=== PATIENT | male | born 1990 | race Two or more races ===

== ENCOUNTER 2016-06-15 13:06 | Emergency (ER) | payer SELFPAY ==
[~2016-06-15] VITALS: Ht 182.9 cm; Wt 81.6 kg
[2016-06-15 13:20] VITALS: BP 140/58
[2016-06-15] MEDS ORDERED: DIPHTH,PERTUSS(ACELL),TET TOX 0.5 ML DISP.SYRIN. VAX IM ONE (14:15)
--- NOTE | 2016-06-15 14:48 | PHYS DOC ---
Past Medical History Past Medical History: No Pertinent History Past Surgical History: No Surgical History Smoking: Less than 1pk/day Alcohol Use: Occasionally Drug Use: None Adult General Chief Complaint Chief Complaint: LACERATION/AVULSION HPI HPI Patient is a 25 year old male who presents with laceration to the right buttock 5 days ago. He was in the shower when he slipped and fell. He hit his right buttock on the edge of the soap dish that was previously broken. He denies hitting his head or loss of consciousness. He denies any other injuries. He is unsure of when he last received a tetanus booster. He does not have a PCP. The patient's family member translates in [place] [employer]. Review of Systems Review of Systems Constitutional: Denies fever or chills. [] Eyes: Denies change in visual acuity, redness, or eye pain. [] Musculoskeletal: Denies back pain or joint pain. [] Integument: Denies rash or skin lesions. Reports right buttock laceration. Neurologic: Denies headache, focal weakness or sensory changes. Denies loss of consciousness. Current Medications Current Medications Current Medications Medications (Trade) Dose Ordered Sig/Ivory Start Time Stop Time Status Last Admin Dose Admin Diphtheria/ Tetanus/Acell Pertussis (Boostrix) 0.5 ml ONCE ONCE 06/15/16 14:15 06/15/16 14:19 DC Allergies Allergies Allergies Coded Allergies Type Severity Reaction Last Updated Verified No Known Drug Allergies 06/15/16 No Physical Exam Physical Exam Constitutional: Well developed, well nourished, no acute distress, non-toxic appearance. [] HENT: Normocephalic, atraumatic, oropharynx moist. [] Eyes: PERRLA, EOMI, conjunctiva normal, no discharge. [] Neck: Normal range of motion, no tenderness, supple, no stridor. [] Skin: Warm, dry, no erythema, no rash. There is a 4cm laceration across the right buttock. There is no surrounding erythema or induration. There is no drainage from the wound. Back: No midline tenderness, no CVA tenderness. [] Extremities: No tenderness, ROM intact, no edema. Distal pulses equal bilaterally. [] Neurologic: Alert and oriented X 3, normal motor function, normal sensory function, no focal deficits noted. [] Psychologic: Affect normal, judgement normal, mood normal. [] Current Patient Data Vital Signs Vital Signs Date Time Temp Pulse Resp B/P Pulse Ox O2 Delivery O2 Flow Rate FiO2 06/15/16 13:20 97.9 53 18 97 Room Air 97.9 EKG EKG [] Radiology/Procedures Radiology/Procedures [] Course & Med Decision Making Course & Med Decision Making Pertinent Labs and Imaging studies reviewed. (See chart for details) Patient presents with a 4 cm laceration to the right buttock. The wound was explored for foreign bodies and none were identified. The wound was cleaned using chlorhexidine scrub and irrigated using normal saline. Wound edges were well approximated using Steri-Strips and Mastisol. The patient tolerated the procedure well and bleeding was controlled. A sterile dressing was applied. Dragon Disclaimer Dragon Disclaimer This electronic medical record was generated, in whole or in part, using a voice recognition dictation system. Departure Departure Impression: Primary Impression: Laceration of right buttock Disposition: 01 HOME, SELF-CARE Condition: STABLE Referrals: NO PCP (PCP) Patient Instructions: Delayed Wound Closure, Sterile Tape Wound Closure Additional Instructions: Your wound was not sutured or glued closed today due to the delay in treatment leading to infection risk. Your wound was closed loosely with Steri-strips. The strips will fall off on their own. Please keep the wound covered with a bandage. Please follow up with a primary care provider if you notice increased redness, swelling, or yellow/green drainage from the wound. These are signs of infection. Return to the emergency department if you have any new or concerning symptoms. Problem Qualifiers Primary Impression: Laceration of right buttock Encounter type: initial encounter Qualified Code: S31.811A - Laceration without foreign body of right buttock, initial encounter KALPANA SANTIAGO Jun 15, 2016 14:48
== END 2016-06-15 15:14 | disposition home or self-care (01) ==
LOC: ER 13:06
DX: S31.811A Laceration without foreign body of right buttock, initial encounter (principal); F17.200 Nicotine dependence, unspecified, uncomplicated; W22.09XA Striking against other stationary object, initial encounter; Y93.89 Activity, other specified; Y99.8 Other external cause status; Y92.89 Other specified places as the place of occurrence of the external cause
CPT/HCPCS: 12002; 90471; 90715; 99283-25